=== PATIENT | male | born 1975 | race Caucasian/White ===

== ENCOUNTER 2019-12-05 17:18 | Emergency (ER) | payer OTHER ==
[~2019-12-05] VITALS: Ht 185.4 cm; Wt 134.0 kg
--- NOTE | 2019-12-05 18:00 | PHYS DOC ---
Past History Past Medical History: Bipolar, Depression, Diabetes (THANH WORTHY DO) Past Medical History: Diabetes, High Cholesterol, Hypertension (TONE WILLIAMSON MD) Past Surgical History: Other Additional Past Surgical Histo: hernia surgery (THANH WORTHY DO) Alcohol Use: Occasionally (THANH WORTHY DO) Adult General Chief Complaint Chief Complaint: FATIGUE HPI HPI Patient is a 44-year-old male who presents for COVID-19 infection concern. Patient works at [employer] and has great contact to the general public. 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 Nonetheless, patient has had several days of URI-like symptoms, specifically rhinorrhea and nasal congestion. 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 These symptoms concerned him and he reported his general feelings of malaise, URI-like symptoms and chest tightness to his boss. He was subsequently dismissed from work and transported to our ER for evaluation. Patient is hoping to get COVID-19 tested today. He is otherwise had no fever, no headache, no syncope, no productive cough, no abdominal pain, no loss in senses such as smell, no changes in bladder or bowel habits, no long distance travel, no hemoptysis (THANH WORTHY DO) HPI atient is a 44-year-old male with history of fatigue and weakness for the last several days. Presents for concern of having COVID. Has no specific contacts- remote contact through who works as a nursing. does not have COVID. Patient has past medical history of diabetes, hypertension, obesity. No change in meds. . No history of fever or chills. Does states he feels more dyspneic at times. No episodes of coughing. No recent travel outside the [place] area. 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 Patient feels possible exposure at work. No chest pain. See notes for details. (TONE WILLIAMSON MD) Review of Systems Review of Systems Fourteen body systems of review of systems have been reviewed. See HPI for pertinent positives and negative responses, other pitt all other systems are negative, non-pertinent or non-contributory (THANH WORTHY DO) Family History Family History Noncontributory (TONE WILLIAMSON MD) Allergies Allergies Allergies Coded Allergies Type Severity Reaction Last Updated Verified No Known Drug Allergies 12/05/19 No (THANH WORTHY DO) Allergies See nursing (TONE WILLIAMSON MD) Physical Exam Physical Exam Constitutional: Well developed, well nourished, no acute distress, non-toxic appearance. HENT: Normocephalic, atraumatic, bilateral external ears normal, oropharynx moist, no oral exudates, moderate postnasal drip present, moderately engorged nasal turbinates with clear rhinorrhea present, external nose normal. Eyes: PERRLA, EOMI, conjunctiva normal, no discharge. Neck: Normal range of motion, no tenderness, supple, no stridor. Cardiovascular: Heart rate regular, sinus rhythm, no murmurs rubs or gallops Lungs & Thorax: Bilateral breath sounds clear to auscultation Abdomen: Bowel sounds normal, soft, no tenderness, no masses, no pulsatile mas ses. Nonsurgical abdomen, no peritoneal signs Skin: Warm, dry, no erythema, no rash. Back: No tenderness, no CVA tenderness. Extremities: No tenderness, no cyanosis, no clubbing, ROM intact, no edema. Neurologic: Alert and oriented X 3, grossly normal motor & sensory function, no focal deficits noted. Psychologic: Affect normal, judgement normal, mood normal. (THANH WORTHY DO) Current Patient Data Vital Signs Vital Signs Date Time Temp Pulse Resp B/P (MAP) Pulse Ox O2 Delivery O2 Flow Rate FiO2 12/05/19 17:18 98.8 96 20 160/108 (125) 97 Room Air (THANH WORTHY DO) EKG EKG EKG ordered and interpreted by myself at 1757 hrs. as sinus rhythm at 91 bpm, unremarkable intervals, left axis deviation, no acute ischemic findings, no STEMI (THANH WORTHY DO) Radiology/Procedures Radiology/Procedures [] (THANH WORTHY DO) Radiology/Procedures [address] [address] IMAGING REPORT Signed PATIENT: TEOFILO HUBER FACCOUNT: [id number] : 1975 LOCATION: ER AGE: 44 SEX: M EXAM STATUS: REG ER ORD. PHYSICIAN: THANH WORTHY DO REASON: SHOB PROCEDURE: CHEST AP ONLY Exam: Chest one view INDICATION: Shortness of breath TECHNIQUE: Frontal view of the chest Comparisons: None FINDINGS: The cardiomediastinal silhouette and pulmonary vessels are within normal limits. The lung and pleural spaces are clear. IMPRESSION: No acute cardiopulmonary process. Electronically signed by: Bennie Pop MD (12/05/2019 7:06 PM) [id number] DICTATED AND SIGNED BY: BENNIE POP MD DATE: 12/05/191905 CC: THANH WORTHY DO; DANIELITO SALAZAR MD ~ (TONE WILLIAMSON MD) Course & Med Decision Making Course & Med Decision Making Patient seen and evaluated on immediate ER arrival ABCs non-concerning Comprehensive history and physical exam obtained, subsequent diagnostic work-up ordered Patient high risk for COVID-19 and this was checked, in addition, patient has numerous risk factors for cardiac disease such as history of hypertension and diabetes and obesity, cannot exclude cardiac event as cause of his presenting illness At this time in care, my shift is ending. Comprehensive signout given to off going physician. Off going physician to personally see and reexamine patient after our discussion. Plan of care was reviewed and tentative decision to discharge home if diagnostic work-up today grossly unremarkable (THANH WORTHY DO) Course & Med Decision Making Impression: 1. Concern for possible COVID- ( No confirmed contact) 2. Fatigue/Weaknes 3. DM= Glu 270 4. Elevated Pnylyb=095 5. Dehydration= BUN 31/Creat. 2.2 6. Hypertension. COVID test pending. Patient follow-up with primary care and work comp. Have primary care or work comp to review ED evaluation. Self isolate if concerns of a viral presentation. (TONE WILLIAMSON MD) Dragon Disclaimer Dragon Disclaimer This electronic medical record was generated, in whole or in part, using a voice recognition dictation system. (THANH WORTHY DO) Dragon Disclaimer Pt. to follow up pending COVID, Self Isolate if any concerns. Must follow up Elevated Glucose and HTN. Review ED work up with primary and work comp. Impression: 1. Concern possible Exposure to COVID ( No confirm contact with know case) 2. Diabetes-glucose is 270 3. Elevated lipase 407 4.. Elevated hypertension 5. Mild dehydration 6. Fatigue Follow up with primary and review pending labs and urine. (TONE WILLIAMSON MD) Departure Departure: Impression: Primary Impression: Person under investigation for COVID-19 Disposition: 01 HOME/RESIDENCE PRIOR TO ADM Condition: STABLE Referrals: DANIELITO SALAZAR MD (PCP) Additional Instructions: You were evaluated in the Emergency Department today for a cough. Your evaluation suggests a viral infection such as Coronavirus. It is important that you continue to self isolate and practice good hygiene at home. Please follow up with your primary care physician as discussed. Return to the Emergency Department if you experience worsening cough, fever, shortness of breath, recurrent vomiting, lethargy, or any other concerning symptoms. Thank you for choosing us for your care. Home Care Instructions for Patients with Mild Respiratory Infection Most people with respiratory infections like colds, the flu, and Coronavirus Disease (COVID-19) will have mild illness and can get better with appropriate home care and without the need to see a provider. People who are elderly, , or have a weak immune system, or other medical problem are at higher risk of more serious illness or complications. It is recommended that they carefully monitor their symptoms closely and seek medical care early if their symptoms get worse. Treatment There is no specific treatment for most viruses including those that that cause the common cold and those that cause COVID-19. Sometimes there is treatment for the viruses that cause influenza if given early. Antibiotics treat infections caused by bacteria, but they do not work against viruses.Most people recover on their own from these viruses, including COVID-19. Here are steps that you can take to help you get better: Rest Drink plenty of fluids Take mfop-ory-mkhgtjh cold and flu medications to reduce fever and pain. Follow the instructions on the package, unless your doctor gave you instructions. Note that these medicines do not ``cure the illness and therefore do not stop you from spreading germs. Children should not be given medication that contains aspirin (acetylsalicylic acid) because it can cause a rare but serious illness called Jaime syndrome. Medicines without aspirin include acetaminophen (Tylenol) and ibuprofen (Advil, Motrin). Children younger than age 2 should not be given any jlbf-djg-pxdvxpe cold medications without first speaking with a doctor.Seeking Medical Care You should seek medical care if you are not getting better within a week, or if your symptoms get worse. If you are elderly, , have a weak immune system, or other medical problems, call your doctor right away. It is best to call ahead of time to discuss your symptoms, if possible. This may allow you to receive the advice you need by phone. By avoiding a visit to a healthcare facility, you protect yourself from getting a new infection and protect others from catching an infection from you. If you do visit a healthcare facility, put on a mask to protect other patients and staff. It is recommended that you seek medical care for serious symptoms, such as: People with potentially life-threatening symptoms should call 911. If possible, put on a facemask before emergency medical services arrive.PROTECTING OTHERS Follow the steps below to help prevent the disease from spreading to people in your home and community.Stay home when you are sick Stay home - do not go to work, school, or public areas. Stay home for at least 24 hours after your symptoms have gone away without the use of fever-reducing medicines. If you must leave home while you are sick, try to avoid using public transportation, ride-shares, and taxis. Wear a mask if possible. Separate yourself from other people and animals in your home Stay in a specific room and away from other people in your home as much as possible. Use a separate bathroom, if available. Try to stay at least 6 feet from others. Do not handle pets or other animals while you are sick. Cover your coughs and sneezes Cover your mouth and nose with a tissue when you cough or sneeze. Throw used tissues in a lined trash can; immediately wash your hands. Avoid sharing personal household items Do not share dishes, drinking glasses, cups, eating utensils, towels, or bedding with other people or pets in your home. Wash them thoroughly with soap and water after use. Clean your hands often Wash your hands often with soap and water for at least 20 seconds. If soap and water are not available, clean your hands with an alcohol-based hand steam table worker that contains at least 60% alcohol, covering all surfaces of your hands and rubbing them together until they feel dry. Use soap and water if your hands are visibly dirty. Clean all ``high-touch surfaces every day High touch surfaces include counters, tabletops, doorknobs, bathroom fixtures, toilets, phones, keyboards, tablets, and bedside tables. Also, clean any surfaces that may have body fluids on them. Use a household cleaning spray or wipe, according to the product label instructions. COVID-19 (Novel Coronavirus) FAQs for Inquiring Patients What do you do if you are worried that you have been exposed to COVID-19 but are without any symptoms? If you develop symptoms that may indicate an infection, contact your physician. These include fever, cough, and shortness of breath. Testing is not available for asymptomatic individuals, regardless of travel history. To reduce the chance of getting sick use general infection prevention measures such as hand washing, covering your mouth and nose when you cough or sneeze and discarding any tissues carefully, and staying home when you are sick.Can exceptions be made for patients who are really worried and want to be tested? Presently testing is only available through the [facility] Department of Public Health and Centers for Disease Control and Prevention. Only patients who meet the updated COVID-19 PUI definition may be tested. We do not control or set the PUI definition or evaluation criteria. We are unable to provide testing to patients who do not meet the strict criteria. Should patients cancel or postpone an upcoming trip? The decision about travel is personal and should be made in the context of a persons underlying health conditions, reason for travel and necessity of travel. Travel insurance generally does not cover cancellations due to concerns of infectious disease outbreaks. The Center for Disease Control has a section on travel notices. Situations are changing frequently and you should monitor the site for updates. Should situations change rapidly in a foreign country while they are traveling, you could be subject to quarantine or restrictions upon return to the [place]. It is best to have a plan on how to return urgently if needed during a trip abroad. Because of how air circulates and is filtered on airplanes, most viruses do not spread easily on airplanes. CDC does not recommend use of facemasks during air travel.What other general precautions are advised? Patients should be instructed to: Avoid close contact with people who are sick. Avoid touching your eyes, nose and mouth. Stay home from work or school when they are sick. If you have a fever, you should remain home until 24 hours after fever resolves. Clean and disinfect frequently touched objects and surfaces using a regular household cleaning spray or wipe. Sneeze/cough into their elbow, not your hand. Practice frequent hand hygiene with soap and water (at least 20 seconds) or alcohol-based hand rub. Consider avoiding crowded places or mass gatherings, especially if you are immunocompromised or have chronic lung disease. There is no evidence to support transmission of COVID-19 from goods imported from [place]. Are there any special precautions that are recommended if I am ? There is not yet any information available about the susceptibility of women to COVID-19. As a general rule, women may be more susceptible to viral respiratory infections and at risk for more severe illness. The CDC guidance for COVID-19 and has answers to questions about transmission during delivery, as well as other situations. Should food, water, or medications be stockpiled? Should people telecommute? The CDC has excellent information on this. Please visit the [facility] guidance for getting your household ready for COVID-19. What should I do if I start feeling sick at work? And what should the workplace do for anyone exposed? Anyone who is sick with a fever and cough should stay home from work until at least 24 hours after resolution of fever, regardless of concerns for COVID-19. It is still influenza (flu) season and influenza remains far more common. Justification of Admission: Justification of Admission: Justification of Admission Dx: N/A (THANH WORTHY DO) Justification of Admission Dx: N/A (TONE WILLIAMSON MD) Dragon Disclaimer This chart was dictated in whole or in part using Voice Recognition software in a busy, high-work load, and often noisy Emergency Department environment. It may contain unintended and wholly unrecognized errors or omissions. (TONE WILLIAMSON MD) Dragon Disclaimer This chart was dictated in whole or in part using Voice Recognition software in a busy, high-work load, and often noisy Emergency Department environment. It may contain unintended and wholly unrecognized errors or omissions. (THANH WORTHY DO) Dragon Disclaimer This chart was dictated in whole or in part using Voice Recognition software in a busy, high-work load, and often noisy Emergency Department environment. It may contain unintended and wholly unrecognized errors or omissions. (TONE WILLIAMSON MD) Dragon Disclaimer This chart was dictated in whole or in part using Voice Recognition software in a busy, high-work load, and often noisy Emergency Department environment. It may contain unintended and wholly unrecognized errors or omissions. (THANH WORTHY DO) THANH WORTHY DO Dec 05, 2019 18:00 TONE WILLIAMSON MD Dec 05, 2019 19:18
[2019-12-05] MEDS ORDERED: ASPIRIN CHEWABLE 81 MG TABLET. PO ONE (18:45)
[2019-12-05] MEDS ORDERED: IV NORMAL SALINE 1,000ML 1,000 ML IV ONE (18:45)
--- NOTE | 2019-12-05 19:08 | RAD ---
Exam: Chest one view INDICATION: Shortness of breath TECHNIQUE: Frontal view of the chest Comparisons: None FINDINGS: The cardiomediastinal silhouette and pulmonary vessels are within normal limits. The lung and pleural spaces are clear. IMPRESSION: No acute cardiopulmonary process. Electronically signed by: Bennie Looney MD (12/05/2019 7:06 PM) [id number]
[2019-12-05 19:40] LABS: BASO % 1 % (0-3); EOS # 0.1 x10^3/uL (0.0-0.7); EOS % 2 % (0-3); HEMATOCRIT 38.9 % (39.0-53.0); HEMOGLOBIN 13.1 g/dL (13.0-17.5); LYMPH # 1.9 x10^3/uL (1.0-4.8); LYMPH % 33 % (24-48); MEAN CORPUSCULAR HEMOGLOBIN 27 pg (25-35); MEAN CORPUSCULAR HGB CONC 34 g/dL (31-37); MEAN CORPUSCULAR VOLUME 80 fL (79-100); MONO # 0.5 x10^3/uL (0.0-1.1); MONO % 8 % (0-9); NEUT # 3.3 x10^3uL (1.8-7.7); NEUT % 56 % (31-73); PLATELET COUNT 148 x10^3/uL (140-400); RED BLOOD COUNT 4.84 x10^6/uL (4.30-5.70); RED CELL DISTRIBUTION WIDTH 14.2 % (11.5-14.5); WHITE BLOOD COUNT 5.8 x10^3/uL (4.0-11.0)
[2019-12-05 19:50] LABS: CALCIUM 8.8 mg/dL (8.5-10.1); CREATININE 2.2 mg/dL (0.7-1.3); GFR 32.8; POTASSIUM 4.2 mmol/L (3.5-5.1)
[2019-12-05 19:57] LABS: ALBUMIN/GLOBULIN RATIO 0.8 (1.0-1.7); TOTAL BILIRUBIN 0.2 mg/dL (0.2-1.0); TOTAL PROTEIN 6.7 g/dL (6.4-8.2)
[2019-12-05 21:00] VITALS: BP 163/92
[2019-12-05 21:01] LABS: BACTERIA,URINE 0 /HPF (0-FEW); BILIRUBIN,URINE NEG (NEG); CLARITY,URINE CLEAR; COLOR,URINE YELLOW; GLUCOSE,URINE >=1000 mg/dL (NEG); NITRITE,URINE NEG (NEG); SQUAMOUS EPITHELIAL CELL,UR FEW /LPF; UROBILINOGEN,URINE 0.2 mg/dL (0.2 mg/dL); WBC,URINE OCC /HPF (0-4)
--- NOTE | 2019-12-06 09:44 | EKG ---
[address] [address] Test Date: 2019-12-05 Test Time: 17:43:05 Pat Name: TEOFILO HUBER Department: Room: Gender: M Building Surveyor: : 1975 Requested By: THANH WORTHY Order Number: [id number] Reading MD: Measurements Intervals [place] Rate: 91 P: 1 RI: 158 QRS: -19 QRSD: 84 T: 22 QT: 348 QTc: 435 Interpretive Statements SINUS RHYTHM LEFTWARD AXIS QRS(T) CONTOUR ABNORMALITY CONSISTENT WITH INFERIOR INFARCT PROBABLY OLD ABNORMAL ECG RI6.02 No previous ECG available for comparison
--- NOTE | 2019-12-09 10:37 | NUR ---
IP: notified patient of COVID result.
== END 2019-12-05 21:13 | disposition home or self-care (01) ==
LOC: ER 17:18
DX: J34.89 Other specified disorders of nose and nasal sinuses (principal); Z20.828 Contact with and (suspected) exposure to other viral communicable diseases; E11.9 Type 2 diabetes mellitus without complications; R74.8 Abnormal levels of other serum enzymes; I10 Essential (primary) hypertension; E86.0 Dehydration; R53.83 Other fatigue; E78.00 Pure hypercholesterolemia, unspecified
CPT/HCPCS: 36415; 71045; 80053; 81001; 82150; 82550; 83690; 84484; 85025; 93005; 96360; 96361; 99285; J7030; U0003